=== PATIENT | female | born 1955 | race Caucasian/White ===

== ENCOUNTER 2017-11-20 09:54 | Emergency (ER) | payer OTHER ==
[~2017-11-20] VITALS: Ht 165.1 cm; Wt 95.2 kg
[~2017-11-20 09:54] MED LIST: CLIN300 PO; CLON.5 PO; DIAZ2 PO; ESTR2 PO; FENO67 PO; Omeprazole20 M1; TOBDEXOPSU BOTHEYES; VENL25 PO
[2017-11-20] MEDS ORDERED: Percocet 5-3251 EACH PO (11:02)
[2017-11-20] MEDS ORDERED: Triamcinolone A15 GM TOP (11:24)
== END 2017-11-20 11:25 | disposition home or self-care (01) ==
LOC: ER 09:54
DX: S89.92XA Unspecified injury of left lower leg, initial encounter (principal); H10.9 Unspecified conjunctivitis; X50.1XXA Overexertion from prolonged static or awkward postures, initial encounter
CPT/HCPCS: 29505; 96372; 99283; J1885